=== PATIENT | male | born 1985 | race American Indian/Alaskan Native ===

== ENCOUNTER 2017-08-31 21:11 | Emergency (ER) | payer SELFPAY ==
[2017-08-31 21:27] VITALS: BP 110/60
--- NOTE | 2017-09-01 00:28 | Emergency Department Report ---
ED Rash HPI - HPI Chief Complaint: Skin Rash Stated Complaint: LT LEG SWELLING; RASH ON HANDS Time Seen by Provider: 09/01/17 00:23 Duration: 1 week Location: Back, Lower Extremities Suspected Cause: Unknown Rash Symptoms: Yes Itching, No Facial Swelling, No Tongue/Oral Swelling, No Breathing Difficulties, No Choking Sensation, No Wheezing/Dyspnea, No Peeling, No Blistering, No Fever, No Lightheaded, No Malaise, No Myalgias Severity: mild Other History: 31-year-old -[place] male comes in for a rash that he's had on his left flank and back times one week. Patient reports that the rash is itchy. He denies any change in detergent no new foods no new medications. He does admit that he has pets in the house that often get on the couch. He also complains of left foot pain mostly on the bottom in between his toes. He reports that the pain is tingly. 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 And his feet is often in a lot of water. Patient reports that he has an appointment this doctor in [place] tomorrow. ED Review of Systems ROS: Stated complaint: LT LEG SWELLING; RASH ON HANDS Other details as noted in HPI Comment: All other systems reviewed and negative Skin: rash (back in the left flank), pruritus (back and left flank) Neurological: denies: headache, weakness, paresthesias Psychiatric: denies: anxiety, depression ED Past Medical Hx - Past Medical History Previous Medical History?: No - Surgical History Past Surgical History?: No Additional Surgical History: tonsillectomy - Social History Smoking Status: Current Every Day Smoker Substance Use Type: None - Medications Home Medications: Home Medications Medication Instructions Recorded Confirmed Last Taken Type Amoxicillin/K Clav Tab [Augmentin 1 tab PO Q12HR #20 tab 04/03/15 Unknown Rx 875 mg] Acetaminophen/Codeine [Tylenol 1 tab PO Q6H PRN #15 tab 01/19/16 Unknown Rx /Codeine # 3 tab] Fluconazole [Diflucan TAB] 150 mg PO QDAY #3 tablet 01/19/16 Unknown Rx Ketoconazole 2% [Nizoral] 15 gm TP BID #1 tube 01/19/16 Unknown Rx Sulfamethoxazole/Trimethoprim 1 each PO BID #20 tablet 01/19/16 Unknown Rx [Bactrim DS TAB] Fluconazole [Diflucan TAB] 150 mg PO ONCE #1 tablet 09/01/17 Unknown Rx Terbinafine HCl [Athlete's Foot] 1 applic TP BID #15 cream..g. 09/01/17 Unknown Rx hydrOXYzine HCL [Atarax] 25 mg PO Q6HR PRN #12 tablet 09/01/17 Unknown Rx Rash Exam - Exam General: Vital signs noted. No distress. Alert and acting appropriately. HEENT: No Periorbital Edema, No Conjuctival Injection, No Chemosis, No Perioral Edema, No Tongue Edema, No Uvular Edema, No Compromised Airway, No Drooling Lungs: Yes Good Air Exchange (Normal Breath Sounds), No Wheezes, No Ronchi, No Stridor, No Cough, No Labored Respirations, No Retractions, No Use of Accessory Muscles, No Other Abnormal Lung Sounds Skin: Yes Weeping (between his toes of his left foot very moist with creamy white discharge with mild erythematous), No Other (multiple papular lesions in various states of healing that are hyperpigmented non-erythematous and edematous base.) Other: Positive: Abdomen Normal, Neurologic Normal, Musculoskeletal Normal ED Course Vital Signs 08/31/17 21:23 Temperature 98.8 F Pulse Rate 81 Respiratory 16 Rate Blood Pressure 110/60 O2 Sat by Pulse 99 Oximetry ED Medical Decision Making - Medical Decision Making Patient has been evaluated with his provider fast track. Discussed the patient the rash between his toes and the reason he has tingling and burning to his feet most likely represent a tinea pedis. Rash on his torso and back could represent a tinea versus insect bites which has bedbugs. Discussed the patient I will place him on Diflucan by mouth for 2 days he can take Atarax for the itchiness recommend using a dial soap. This patient he needs to keep his feet clean and dry change his socks 2 white. Try not to be in in water as this makes the tinea worse on his feet. Discussed patient to keep his appointment with his doctor in [place] tomorrow for further evaluation. She verbalized understanding Critical care attestation.: If time is entered above; I have spent that time in minutes in the direct care of this critically ill patient, excluding procedure time. ED Disposition Clinical Impression: Tinea pedis of left foot, Rash and nonspecific skin eruption Disposition: DC-01 TO HOME OR SELFCARE Is pt being admited?: No Does the pt Need Aspirin: No Condition: Stable Instructions: Tinea Pedis (ED), Acute Rash (ED) Additional Instructions: Please is take medication as prescribed. Please do not keep your feet in water as this makes her fungus on her feet worse. These keep feet clean and dry. Please use Dial soap. Follow-up primary care provider symptoms persist or gets worse. Prescriptions: Fluconazole [Diflucan TAB] 150 mg PO ONCE #1 tablet hydrOXYzine HCL [Atarax] 25 mg PO Q6HR PRN #12 tablet PRN Reason: Itching Terbinafine HCl [Athlete's Foot] 1 applic TP BID #15 cream..g. Referrals: PRIMARY CARE, [Primary Care Provider] - 3-5 Days MURRAY NAVARRO MD [Staff Physician] - 3-5 Days DOUGLAS LEUMS MD [Staff Physician] - 3-5 Days Forms: Work/School Release Form(ED)
== END 2017-09-01 00:47 | disposition home or self-care (01) ==
LOC: ED 21:11
DX: B35.3 Tinea pedis (principal); R21 Rash and other nonspecific skin eruption; F17.200 Nicotine dependence, unspecified, uncomplicated
CPT/HCPCS: 99281